=== PATIENT | male | born 1970 | race Caucasian/White ===

== ENCOUNTER → 2017-10-12 | Outpatient (REF) | payer OTHER ==
[2017-10-12 20:43] LABS: INFLUENZA A AMPLIFICATION POSITIVE (NEGATIVE); INFLUENZA B AMPLIFICATION NEGATIVE (NEGATIVE); RSV AMPLIFICATION NEGATIVE (NEGATIVE)
== END ==
LOC: M LAB REF 19:09
DX: J11.1 Influenza due to unidentified influenza virus with other respiratory manifestations (principal)

== ENCOUNTER → 2018-12-14 | Outpatient (CLI) | payer OTHER ==
[~2018-12-14] MED LIST: MELO7.5S PO
[2018-12-14 12:28] LABS: BASO # 0.1 10^3/uL (0.0-0.2); BASO % 0.6 % (0.0-1.0); EOS # 0.2 10^3/uL (0.0-0.50); EOS % 2.3 % (0.0-3.0); HEMATOCRIT 45.8 % (42.0-52.0); HEMOGLOBIN 14.9 g/dl (13.5-17.5); LYMPH # 2.6 10^3/uL (1.5-4.5); LYMPH % 32.9 % (24.0-44.0); MEAN CORPUSCULAR HEMOGLOBIN 28.2 pg (27.0-33.0); MEAN CORPUSCULAR HGB CONC 32.5 g/dl (32.0-36.5); MEAN CORPUSCULAR VOLUME 86.7 fl (80.0-96.0); MONO # 0.6 10^3/uL (0.0-0.8); MONO % 8.1 % (0.0-5.0); NEUTROPHILS # 4.3 10^3/uL (1.8-7.7); NEUTROPHILS % 55.2 % (36.0-66.0); PLATELET COUNT, AUTOMATED 267 10^3/uL (150-450); RED BLOOD COUNT 5.28 10^6/uL (4.30-6.10); WHITE BLOOD COUNT 7.8 10^3/uL (4.0-10.0)
[2018-12-14 13:08] LABS: ALT/SGPT 96 U/L (12-78); BILIRUBIN,TOTAL 0.4 MG/DL (0.2-1.0); BLOOD UREA NITROGEN 21 MG/DL (7-18); CALCIUM LEVEL 9.6 MG/DL (8.5-10.1); CARBON DIOXIDE LEVEL 26 MEQ/L (21-32); CHLORIDE LEVEL 107 MEQ/L (98-107); CHOLESTEROL LEVEL 184 MG/DL (<200); CHOLESTEROL RISK RATIO 5.257 (<5); CREATININE FOR GFR 0.88 MG/DL (0.70-1.30); FREE T4 1.03 NG/DL (0.76-1.46); GLOMERULAR FILTRATION RATE > 60.0 (>60); GLUCOSE, FASTING 96 MG/DL (70-100); HDL CHOLESTEROL 35 MG/DL (>40); LDL CHOLESTEROL 105 MG/DL (<100); NON-HDL-C 149 MG/DL; POTASSIUM SERUM 4.8 MEQ/L (3.5-5.1); SODIUM LEVEL 140 MEQ/L (136-145); TOTAL PROTEIN 7.3 GM/DL (6.4-8.2); TRIGLYCERIDES LEVEL 219 MG/DL (<150)
[2018-12-14 14:01] LABS: HEMOGLOBIN A1c 5.6 %
[2018-12-16 00:08] LABS: TESTOSTERONE FREE (DIRECT) 4.4 pg/mL (6.8-21.5)
== END ==
LOC: M WUC 11:01
PROVIDERS: ATTEND Physician Assistant
DX: R53.83 Other fatigue (principal); Z13.29 Encounter for screening for other suspected endocrine disorder
CPT/HCPCS: 36415; 80053; 80061; 83036; 84402; 84403; 84439; 84443; 85025; G0103

== ENCOUNTER → 2019-01-05 | Outpatient (CLI) | payer OTHER ==
[2019-01-08 00:06] LABS: TESTOSTERONE FREE (DIRECT) 9.7 pg/mL (6.8-21.5)
== END ==
LOC: M WUC 15:03
PROVIDERS: ATTEND Physician Assistant
DX: T38.7X6A Underdosing of androgens and anabolic congeners, initial encounter (principal); X58.XXXA Exposure to other specified factors, initial encounter; Y92.89 Other specified places as the place of occurrence of the external cause

== ENCOUNTER → 2019-06-15 | Outpatient (CLI) | payer OTHER ==
[2019-06-21 00:07] LABS: STREP PNEUMO TYPE 1 >13.6 ug/mL (>1.3); STREP PNEUMO TYPE 12F <0.1 ug/mL (>1.3); STREP PNEUMO TYPE 14 <0.1 ug/mL (>1.3); STREP PNEUMO TYPE 18C 0.6 ug/mL (>1.3); STREP PNEUMO TYPE 19A 0.8 ug/mL (>1.3); STREP PNEUMO TYPE 19F 0.9 ug/mL (>1.3); STREP PNEUMO TYPE 23F 0.1 ug/mL (>1.3); STREP PNEUMO TYPE 3 1.1 ug/mL (>1.3); STREP PNEUMO TYPE 4 <0.1 ug/mL (>1.3); STREP PNEUMO TYPE 6B 0.2 ug/mL (>1.3); STREP PNEUMO TYPE 7F 1.1 ug/mL (>1.3); STREP PNEUMO TYPE 8 <0.1 ug/mL (>1.3); STREP PNEUMO TYPE 9N 0.7 ug/mL (>1.3); STREP PNEUMO TYPE 9V 0.3 ug/mL (>1.3)
== END ==
LOC: M WUC 10:23
PROVIDERS: ATTEND Family Medicine
DX: J20.9 Acute bronchitis, unspecified (principal)

== ENCOUNTER 2020-08-13 09:36 | Emergency (ER) | payer OTHER ==
[~2020-08-13] VITALS: Ht 172.7 cm; Wt 88.3 kg
[2020-08-13] MEDS ORDERED: ONDANSETRON 4MG/2ML VIAL IV ONE (10:00)
[2020-08-13] MEDS ORDERED: NS 1,000 ML IV ONE (10:00)
[2020-08-13 10:22] LABS: BASO % 0.2 % (0.0-1.0); HEMATOCRIT 50.3 % (42.0-52.0); HEMOGLOBIN 16.6 g/dl (13.5-17.5); LYMPH % 7.2 % (24.0-44.0); MEAN CORPUSCULAR HEMOGLOBIN 28.7 pg (27.0-33.0); MONO # 0.5 10^3/uL (0.0-0.8); MONO % 3.4 % (0.0-5.0); NEUTROPHILS # 12.8 10^3/uL (1.5-8.5); NEUTROPHILS % 88.8 % (36.0-66.0); PLATELET COUNT, AUTOMATED 183 10^3/uL (150-450); RED BLOOD COUNT 5.78 10^6/uL (4.30-6.10); WHITE BLOOD COUNT 14.4 10^3/uL (4.0-10.0)
[2020-08-13 10:51] LABS: ALBUMIN 4.4 GM/DL (3.2-5.2); ALT/SGPT 49 U/L (12-78); AMYLASE 48 U/L (25-115); BILIRUBIN,DIRECT < 0.1 MG/DL (0.0-0.2); BILIRUBIN,TOTAL 0.7 MG/DL (0.2-1.0); BLOOD UREA NITROGEN 18 MG/DL (7-18); CALCIUM LEVEL 9.8 MG/DL (8.5-10.1); CARBON DIOXIDE LEVEL 25 MEQ/L (21-32); CHLORIDE LEVEL 104 MEQ/L (98-107); CREATININE FOR GFR 1.59 MG/DL (0.70-1.30); GLOMERULAR FILTRATION RATE 49.5 (>60); GLUCOSE, FASTING 137 MG/DL (70-100); LIPASE 81 U/L (73-393); POTASSIUM SERUM 5.1 MEQ/L (3.5-5.1); SODIUM LEVEL 138 MEQ/L (136-145); TOTAL PROTEIN 8.3 GM/DL (6.4-8.2)
[2020-08-13] MEDS ORDERED: ISOVUE-370 76% 100ML VIAL As Ordered ONE ×2 (11:06→11:15)
--- NOTE | 2020-08-13 11:45 | REP ---
INDICATION: N/V/D, LLQ abd pain. COMPARISON: CT abdomen, pelvis not included, with IV and bowel contrast dated 2006. TECHNIQUE: Abdomen pelvis CT with IV contrast, without bowel contrast. FINDINGS: The visualized lung nina are unremarkable. The a patent parenchyma, gallbladder, pancreas and spleen are normal size and unremarkable. The adrenals are unremarkable. The kidneys are unremarkable. The abdominal aorta is unremarkable. There is no periaortic adenopathy or mass. There is a single loop of proximal small bowel and is fluid-filled and minimally distended measuring up to 2.7 cm in diameter. This is nonspecific and could merely represent peristalsis or possibly focal enteritis. There are no inflammatory changes in the mesentery. There is no ascites. There is no pneumoperitoneum. Pelvis: There is no pelvic ascites or adenopathy. The bladder is unremarkable. The pelvic bowel loops are unremarkable. No colonic diverticula are identified. There are no inflammatory changes in the mesentery. IMPRESSION: A nonspecific bowel gas pattern. There is a single loop of proximal small bowel that is 4 fluid-filled and mildly dilated. This is nonspecific and could merely represent peristalsis or possibly a focal enteritis. There are no inflammatory changes in the mesentery. No ascites. No numerous peritoneum. No evidence of bowel obstruction. No adenopathy or mass. <Electronically signed by Devin Mosley > 08/13/20 [id number]
[2020-08-13] MEDS ORDERED: METOCLOPRAMIDE INJ 10MG/2ML VIAL (J2765 PER 1) IV ONE (12:30)
[2020-08-13 13:00] LABS: AMPHETAMINES LEVEL URINE NEGATIVE (NEGATIVE); BARBITURATES URINE NEGATIVE (NEGATIVE); BENZODIAZEPINES URINE NEGATIVE (NEGATIVE); CANNABINOIDS URINE POSITIVE (NEGATIVE); COCAINE METABOLITE URINE NEGATIVE (NEGATIVE); METHADONE URINE NEGATIVE (NEGATIVE); OPIATES URINE NEGATIVE (NEGATIVE); PHENCYCLIDINE URINE NEGATIVE (NEGATIVE)
[2020-08-13] MEDS ORDERED: ONDA4TAB6 PO (13:57)
[2020-08-13 14:12] VITALS: BP 159/75
== END 2020-08-13 14:31 | disposition home or self-care (01) ==
LOC: M ED 09:36
DX: K52.9 Noninfective gastroenteritis and colitis, unspecified (principal); R79.89 Other specified abnormal findings of blood chemistry; R31.9 Hematuria, unspecified; T40.7X1A Poisoning by cannabis (derivatives), accidental (unintentional), initial encounter; R11.2 Nausea with vomiting, unspecified; K21.9 Gastro-esophageal reflux disease without esophagitis; F17.200 Nicotine dependence, unspecified, uncomplicated
CPT/HCPCS: 74177; 80048; 80076; 80307; 81001; 82150; 83690; 85025; 96361; 96374; 96375; 99284; J2405; J2765; Q9967

== ENCOUNTER → 2020-08-19 | Outpatient (CLI) | payer OTHER ==
[~2020-08-19] MED LIST changes: +ONDA4TAB6 PO
[2020-08-19 15:22] LABS: BASO % 0.6 % (0.0-1.0); EOS # 0.1 10^3/uL (0.0-0.5); HEMATOCRIT 47.4 % (42.0-52.0); HEMOGLOBIN 15.1 g/dl (13.5-17.5); LYMPH # 2.7 10^3/uL (1.5-5.0); LYMPH % 37.2 % (24.0-44.0); MEAN CORPUSCULAR HEMOGLOBIN 28.8 pg (27.0-33.0); MEAN CORPUSCULAR HGB CONC 31.9 g/dl (32.0-36.5); MEAN CORPUSCULAR VOLUME 90.5 fl (80.0-96.0); MONO # 0.6 10^3/uL (0.0-0.8); MONO % 8.4 % (0.0-5.0); NEUTROPHILS # 3.7 10^3/uL (1.5-8.5); NEUTROPHILS % 51.2 % (36.0-66.0); PLATELET COUNT, AUTOMATED 174 10^3/uL (150-450); RED BLOOD COUNT 5.24 10^6/uL (4.30-6.10); WHITE BLOOD COUNT 7.2 10^3/uL (4.0-10.0)
[2020-08-19 15:32] LABS: APPEARANCE, URINE CLEAR (CLEAR); BACTERIA, URINE AUTO NEGATIVE (NEGATIVE); BILIRUBIN, URINE AUTO NEGATIVE (NEGATIVE); BLOOD, URINE BLOOD 1+ (NEGATIVE); COLOR, URINE YELLOW (YELLOW); GLUCOSE, URINE (UA) AUTO NEGATIVE (NEGATIVE); KETONE, URINE AUTO NEGATIVE (NEGATIVE); LEUKOCYTE ESTERASE, URINE AUTO NEGATIVE (NEGATIVE); MUCUS, URINE SMALL (NEGATIVE); NITRITE, URINE AUTO NEGATIVE (NEGATIVE); PROTEIN, URINE AUTO NEGATIVE (NEGATIVE); RBC, URINE AUTO 2 /HPF (0-3); SPECIFIC GRAVITY URINE AUTO 1.024 (1.002-1.035); SQUAMOUS EPITHELIAL CELL UR AU 0 /HPF (0-6); UROBILINOGEN, URINE AUTO 0.2 mg/dL (0.0-2.0); WBC, URINE AUTO 0 /HPF (0-3)
[2020-08-19 15:39] LABS: ALBUMIN 4.3 GM/DL (3.2-5.2); ALT/SGPT 54 U/L (12-78); BILIRUBIN,DIRECT 0.2 MG/DL (0.0-0.2); BILIRUBIN,TOTAL 0.5 MG/DL (0.2-1.0); BLOOD UREA NITROGEN 15 MG/DL (7-18); CALCIUM LEVEL 9.3 MG/DL (8.5-10.1); CARBON DIOXIDE LEVEL 30 MEQ/L (21-32); CHLORIDE LEVEL 109 MEQ/L (98-107); CREATININE FOR GFR 0.96 MG/DL (0.70-1.30); GLOMERULAR FILTRATION RATE > 60.0 (>60); GLUCOSE, FASTING 80 MG/DL (70-100); LIPASE 394 U/L (73-393); POTASSIUM SERUM 4.8 MEQ/L (3.5-5.1); SODIUM LEVEL 141 MEQ/L (136-145); TOTAL PROTEIN 7.8 GM/DL (6.4-8.2)
== END ==
LOC: M WUC 10:56
PROVIDERS: ATTEND Physician Assistant
DX: R19.7 Diarrhea, unspecified (principal)

== ENCOUNTER 2020-10-12 19:26 | Emergency (ER) | payer OTHER ==
[~2020-10-12] VITALS: Ht 172.7 cm; Wt 86.8 kg
[2020-10-12] MEDS ORDERED: KETOROLAC TROMETHAMINE 10 MG TAB PO ONE (20:00)
[2020-10-12 21:49] VITALS: BP 128/69
--- NOTE | 2020-10-14 17:38 | REP ---
INDICATION: hit chest on safety bar. Repeat dictation. Preliminary report is provided at the time of the exam by nicole GUSTAFSON. COMPARISON: None. TECHNIQUE: Five views including PA chest. FINDINGS: PA chest radiograph is unremarkable. There is no evidence of infiltrate or free subdiaphragmatic air. No pneumothorax or hydrothorax is seen. Mediastinum is not widened. Heart size is normal. Lung nina are clear. Multiple views of the bilateral rib cage show no evidence of rib fracture or bony destructive lesion. IMPRESSION: Negative bilateral rib radiographs. <Electronically signed by Dion Camarillo > 10/14/20 [id number]
== END 2020-10-12 22:06 | disposition home or self-care (01) ==
LOC: M ED 19:26
DX: S20.219A Contusion of unspecified front wall of thorax, initial encounter (principal); X58.XXXA Exposure to other specified factors, initial encounter; Y92.9 Unspecified place or not applicable; Y93.89 Activity, other specified; Y99.9 Unspecified external cause status; F17.290 Nicotine dependence, other tobacco product, uncomplicated

== ENCOUNTER → 2021-04-10 | Outpatient (CLI) | payer OTHER ==
--- NOTE | 2021-04-10 16:00 | REP ---
INDICATION: LEFT SIDED LOW BACK PAIN WITH LEFT SIDED RADICULOPATHY. COMPARISON: Lumbar spine series dated 10/04/2014 and bilateral rib series dated 10/12/2020. TECHNIQUE: Seven views including flexion and extension views in the lateral projection. FINDINGS: There are small accessory ribs at the lateral margins of the L1 vertebral body, unchanged. The transverse processes of the S1 vertebra are not fused to the sacrum. The S1 vertebral body is not fused to the sacrum. These are congenital variations. There is advanced degenerative disc disease at L5-S1, unchanged. Vertebral interspacing is otherwise unremarkable. Vertebral body heights and alignment are normal. There is no spondylolysis. There is no spondylolisthesis. There is no listhesis on flexion or extension. IMPRESSION: Advanced degenerative disc disease at L5-S1. No listhesis on flexion or extension. Congenital variations as described. <Electronically signed by Devin Mosley > 04/10/21 [id number]
== END ==
LOC: M WUC 14:57
PROVIDERS: ATTEND Physician Assistant
DX: M51.36 Other intervertebral disc degeneration, lumbar region (principal)

== ENCOUNTER → 2021-08-24 | Outpatient (REF) | LOC: M EMP 14:10 | PROVIDERS: ATTEND Family Medicine | DX: Z11.52 Encounter for screening for COVID-19 (principal) ==

== ENCOUNTER → 2021-08-29 | Outpatient (REF) | LOC: M LABSMTC 10:41 | PROVIDERS: ATTEND Family Medicine | DX: Z20.822 Contact with and (suspected) exposure to COVID-19 (principal) ==

== ENCOUNTER → 2021-12-22 | Outpatient (CLI) | payer BC ==
[2021-12-22 17:18] LABS: ALBUMIN 4.5 GM/DL (3.2-5.2); ALT/SGPT 48 U/L (12-78); BILIRUBIN,TOTAL 0.6 MG/DL (0.2-1.0); BLOOD UREA NITROGEN 18 MG/DL (7-18); CALCIUM LEVEL 9.3 MG/DL (8.5-10.1); CARBON DIOXIDE LEVEL 29 MEQ/L (21-32); CHLORIDE LEVEL 107 MEQ/L (98-107); CHOLESTEROL LEVEL 175 MG/DL (<200); CHOLESTEROL RISK RATIO 3.723 (<5); CREATININE FOR GFR 0.92 MG/DL (0.70-1.30); GLOMERULAR FILTRATION RATE > 60.0 (>56); GLUCOSE, FASTING 84 MG/DL (70-100); HDL CHOLESTEROL 47 MG/DL (>40); LDL CHOLESTEROL 106 MG/DL (<100); NON-HDL-C 128 MG/DL; POTASSIUM SERUM 4.1 MEQ/L (3.5-5.1); SODIUM LEVEL 140 MEQ/L (136-145); TOTAL 25(OH) VITAMIN D 51.2 NG/ML (30.0-100.0); TOTAL PROTEIN 7.9 GM/DL (6.4-8.2); TRIGLYCERIDES LEVEL 108 MG/DL (<150)
== END ==
LOC: M WUC 13:34
PROVIDERS: ATTEND Physician Assistant
DX: E55.9 Vitamin D deficiency, unspecified (principal); E78.00 Pure hypercholesterolemia, unspecified

== ENCOUNTER → 2023-01-06 | Outpatient (CLI) | payer BC ==
[2023-01-06 13:05] LABS: BASO # 0.1 10^3/uL (0.0-0.2); BASO % 0.8 % (0.0-1.0); EOS # 0.1 10^3/uL (0.0-0.5); EOS % 0.8 % (0.0-3.0); HEMATOCRIT 47.9 % (42.0-52.0); HEMOGLOBIN 15.9 g/dl (13.5-17.5); LYMPH # 2.3 10^3/uL (1.5-5.0); LYMPH % 34.9 % (24.0-44.0); MEAN CORPUSCULAR HEMOGLOBIN 29.1 pg (27.0-33.0); MEAN CORPUSCULAR HGB CONC 33.2 g/dl (32.0-36.5); MEAN CORPUSCULAR VOLUME 87.7 fl (80.0-96.0); MONO # 0.4 10^3/uL (0.0-0.8); MONO % 5.6 % (2.0-8.0); NEUTROPHILS # 3.8 10^3/uL (1.5-8.5); NEUTROPHILS % 57.6 % (36.0-66.0); PLATELET COUNT, AUTOMATED 163 10^3/uL (150-450); RED BLOOD COUNT 5.46 10^6/uL (4.30-6.10); WHITE BLOOD COUNT 6.6 10^3/uL (4.0-10.0)
[2023-01-06 13:18] LABS: HEMOGLOBIN A1c 5.4 % (4.0-6.0)
[2023-01-06 13:36] LABS: ALBUMIN 4.3 G/DL (3.2-5.2); ALKALINE PHOSPHATASE 75 U/L (46-116); ALT/SGPT 27 U/L (7.0-40); AST/SGOT 17 U/L (<34); BILIRUBIN,TOTAL 0.3 MG/DL (0.3-1.2); BLOOD UREA NITROGEN 18 MG/DL (9-23); CALCIUM LEVEL 9.3 MG/DL (8.5-10.1); CARBON DIOXIDE LEVEL 27 MMOL/L (20-31); CHLORIDE LEVEL 106 MMOL/L (98-107); CHOLESTEROL LEVEL 199 MG/DL (<200); CHOLESTEROL RISK RATIO 4.66 (<5); CREATININE FOR GFR 0.79 MG/DL (0.70-1.30); FREE T4 0.92 NG/DL (0.89-1.76); GLOMERULAR FILTRATION RATE > 60.0 (>56); GLUCOSE, FASTING 91 MG/DL (60-100); HDL CHOLESTEROL 42.7 MG/DL (>40); LDL CHOLESTEROL 116.5 MG/DL (<100); NON-HDL-C 156.3 MG/DL; POTASSIUM SERUM 4.3 MMOL/L (3.5-5.1); SODIUM LEVEL 141 MMOL/L (136-145); TOTAL PROTEIN 7.1 G/DL (5.7-8.2); TRIGLYCERIDES LEVEL 199 MG/DL (<150)
[2023-01-06 13:40] LABS: THYROID STIMULATING HORMONE 1.573 uIU/ML (0.55-4.78)
== END ==
LOC: M WUC 10:53
PROVIDERS: ATTEND Physician Assistant
DX: Z12.5 Encounter for screening for malignant neoplasm of prostate (principal); Z13.220 Encounter for screening for lipoid disorders; Z13.29 Encounter for screening for other suspected endocrine disorder

== ENCOUNTER → 2023-05-17 | Outpatient (REF) | LOC: M EMP 08:35 | PROVIDERS: ATTEND Family Medicine | DX: Z11.52 Encounter for screening for COVID-19 (principal) ==

== ENCOUNTER → 2024-06-12 | Outpatient (REF) ==
[~2024-06-12] MED LIST changes: +ONDA-282 PO; -ONDA4TAB6 PO
== END ==
LOC: M EMP 12:01
PROVIDERS: ATTEND Family Medicine
DX: Z11.52 Encounter for screening for COVID-19 (principal)

== ENCOUNTER → 2024-12-26 | Outpatient (CLI) | payer BC ==
[2024-12-26 12:54] LABS: BASO % 0.4 % (0.0-1.0); EOS # 0.1 10^3/uL (0.0-0.5); EOS % 1.1 % (0.0-3.0); HEMATOCRIT 47.9 % (42.0-52.0); HEMOGLOBIN 15.6 g/dl (13.5-17.5); LYMPH # 2.5 10^3/uL (1.5-5.0); LYMPH % 35.1 % (24.0-44.0); MEAN CORPUSCULAR HEMOGLOBIN 28.8 pg (27.0-33.0); MEAN CORPUSCULAR HGB CONC 32.6 g/dl (32.0-36.5); MEAN CORPUSCULAR VOLUME 88.5 fl (80.0-96.0); MONO # 0.4 10^3/uL (0.0-0.8); NEUTROPHILS % 57.1 % (36.0-66.0); PLATELET COUNT, AUTOMATED 166 10^3/uL (150-450); RED BLOOD COUNT 5.41 10^6/uL (4.30-6.10)
[2024-12-26 12:56] LABS: PSA SCREENING 0.56 NG/ML (< 4.00)
[2024-12-26 12:59] LABS: ALBUMIN 4.3 G/DL (3.2-5.2); ALKALINE PHOSPHATASE 68 U/L (40-129); ALT/SGPT 43 U/L (7.0-40); AST/SGOT 25 U/L (<34); BILIRUBIN,TOTAL 0.5 MG/DL (0.3-1.2); BLOOD UREA NITROGEN 14 MG/DL (9-23); CALCIUM LEVEL 9.8 MG/DL (8.5-10.1); CARBON DIOXIDE LEVEL 27 MMOL/L (20-31); CHLORIDE LEVEL 106 MMOL/L (98-107); CHOLESTEROL LEVEL 201 MG/DL (<200); CHOLESTEROL RISK RATIO 4.49 (<5); CREATININE FOR GFR 0.74 MG/DL (0.70-1.30); FREE T4 1.08 NG/DL (0.89-1.76); GLOMERULAR FILTRATION RATE > 90.0 (>56); GLUCOSE, FASTING 103 MG/DL (60-100); HDL CHOLESTEROL 44.7 MG/DL (>40); LDL CHOLESTEROL 132.5 MG/DL (<100); NON-HDL-C 156.3 MG/DL; POTASSIUM SERUM 4.6 MMOL/L (3.5-5.1); SODIUM LEVEL 141 MMOL/L (136-145); TOTAL PROTEIN 7.5 G/DL (5.7-8.2); TRIGLYCERIDES LEVEL 119 MG/DL (<150)
[2024-12-26 13:00] LABS: THYROID STIMULATING HORMONE 0.881 uIU/ML (0.55-4.78)
[2024-12-26 13:29] LABS: HEMOGLOBIN A1c 5.1 % (4.0-6.0)
== END ==
LOC: M WUC 09:30
PROVIDERS: ATTEND Physician Assistant
DX: Z01.84 Encounter for antibody response examination (principal); Z12.5 Encounter for screening for malignant neoplasm of prostate; Z13.29 Encounter for screening for other suspected endocrine disorder; Z13.220 Encounter for screening for lipoid disorders